=== PATIENT | male | born 1965 | race Caucasian/White ===

== ENCOUNTER 2018-11-22 19:57 | Emergency (ER) | payer BC, SELFPAY ==
[2018-11-22 20:06] VITALS: BP 130/103; PULSE 108; RESP 22; TEMP 36.9; O2SAT 93
--- NOTE | 2018-11-22 20:13 | DI.RAD_ITS ---
SYMPTOM/DIAGNOSIS: RT RIB PAIN, FELT POP, ? FX OR PNEUMONIA, COUGH PA AND LATERAL CHEST: No priors. The heart is normal in size. The lungs are clear. The mediastinal structures and pleura appear intact. CONCLUSION: Normal chest.
[2018-11-22] MEDS: Albuterol/Ipratropium 3 ML UPD VIAL UPD (20:19)
--- NOTE | 2018-11-22 21:06 | DI.VRAD_ITS ---
EXAM: XR Chest, 2 Views EXAM DATE/TIME: 11/22/2018 8:37 PM CLINICAL HISTORY: 53 years old, male; Pain; Other: Chest and RT rib pain TECHNIQUE: XR of the chest, 2 views. COMPARISON: No relevant prior studies available. FINDINGS: No airspace consolidation, pleural effusion or pneumothorax. The cardiomediastinal silhouette is unremarkable. IMPRESSION: No acute findings. Dictated and Authenticated by: Arash Nicole MD. Ordering:YOANA Acevedo MD
[2018-11-22 21:16] VITALS: BP 127/71; PULSE 98; RESP 18; TEMP 36.9; O2SAT 94
[2018-11-22] MEDS: Lidocaine 5% Patch 1 PATCH TP (21:49)
--- NOTE | 2018-11-23 01:35 | ED.GENADUL_ITS ---
Discharge Plan Disposition Patient Disposition: HOME Condition: Good Discharge Details Chief Complaint: RespSymp Clinical Impression: Influenza [facility] Provider: Curtis Mark Home Meds and New Rx's Prescriptions: No Action lisinopril 20 mg Tablet 20 mg PO DAILY RF: 0 amlodipine 5 mg Tablet 5 mg PO DAILY RF: 0 Discharge Instructions Instructions: Influenza (ED) Additional Instructions: Please drink plenty of fluids throughout the day. Please take Tylenol and Motrin as needed for pain. If you notice any worsening of your symptoms, or any new symptoms such as vomiting, diarrhea, fever, chills, shortness of breath, chest pain, numbness, weakness, or fainting , please return immediately to the emergency department for reevaluation. Please follow up with your primary care provider as soon as possible for reassessment and reevaluation. As always, it was a pleasure participating in your medical care today. Discharge Data Discharge Date/Time-TO BE ENTERED AT DEPARTURE: 11/22/18 21:55 Medical Decision Making This is a very pleasant 53-year-old gentleman who presents for 5 days of chills,, ache, cough, and feeling very rundown. Signs and symptoms are concerning for influenza. He does have risk factors being here in the hospital with a friend for quite some time. Physical exam shows no red flags of meningitis, he has no cardiac history, and did have a cardiac catheterization 2 years ago which showed no evidence of occlusion or plaques and needed no intervention. The patient's influenza test was positive for influenza A. Chest x-ray is negative for any evidence of pneumonia, hospital-acquired pneumonia, or rib fracture or pneumothorax. The patient's vital signs are reassuring and stable. Since his symptoms have been going on for 5 days he is not a candidate for Tamiflu. With reassuring vital signs, no evidence of pneumonia, pneumothorax, meningitis, or other significant abnormality we recommend continued home use of Tylenol, Motrin, fluids, cough drops and honey for control of his cough. We did apply a Lidoderm patch to the right side of his chest and the patient had notable improvement of his symptoms with this. We discussed red flags which to return. I have extensively reviewed the treatment plan and discharge instructions with the patient. I have addressed all patient concerns at this time. The patient was made aware of what symptoms to monitor for that would warrant a return to the emergency department. Discussed the plan with the patient, they demonstrate verbal understanding and agreement with our assessment and plan at this time. HPI General Date/Time Provider Initiated Documentation: 11/22/18 20:03 . HPI Narrative: This is a very pleasant 53-year-old male with a past medical history of hypertension who presents today for 5 days of cough, runny nose, congestion, feelings of malaise and achiness, and feeling like he got run over by a truck. He did get his flu shot today. He had a family member who was recently admitted in the hospital and he had been staying with the patient here in the hospital to be with the patient. Patient also admits that yesterday during his coughing episodes he had a sudden pain and popping-like sensation on his right lower chest wall. Since then he has had some pain with coughing. He denies any other complaints at this time. He denies any productivity with his cough, fever, vomiting, diarrhea, neck pain or neck stiffness. No other modifying factors or other complaints at this time. He denies any current tobacco use. Related Data Home Medications Medication Instructions Recorded Confirmed amlodipine 5 mg PO DAILY 11/22/18 11/22/18 lisinopril 20 mg PO DAILY 11/22/18 11/22/18 Allergies Allergy/AdvReac Type Severity Reaction Status Date / Time No Known Allergies Allergy Unverified 11/22/18 20:12 General Stated Complaint: RespSymp UMM: 3 Review of Systems Review of Systems All systems reviewed & are unremarkable except as noted in HPI and below [facility] Social History Smoking/Tobacco Use Status: Never Exam Narrative Exam Narrative: 1.Const: Well-nourished, Well-developed, appearing stated age 2.Eyes: PERRL, no conjunctival injection, and symmetrical lids. 3.ENT: Atraumatic external nose and ears. Moist MM. Neck: Symmetric, trachea midline, No thyromegaly. Patient demonstrates good movement of cervical neck. There is no nuchal rigidity, no nuchal tenderness. Patient is able to flex the neck without any difficulty or significant pain. Negative Kernig's and Brudzinski sign. 4.CVS: +S1/S2, No murmurs or gallops. Peripheral pulses 2+ and equal in all extremities. Brisk capillary refill in all extremities. 5.RESP: Unlabored respiratory effort. Clear to auscultation bilaterally. No wheezes rales or rhonchi. Notable reproducible chest wall over the right anterior lower chest wall over ribs 9 and 10. 6.GI: Soft, Nontender/Nondistended, No hepatosplenomegaly. No guarding or rebound. 7.MSK: Normocephalic/Atraumatic, Extremities w/o deformity or ttp No cyanosis or clubbing, Normal movement of all extremities 8.Skin: Warm, Dry. No rashes or lesions. 9.Neuro: life skills trainer II-XII grossly intact. Sensation grossly intact, no focal neurologic deficits. 10.Psych: (AAO) x3. Appropriate mood and affect Course Vital Signs Temperature 36.9 C 11/22/18 20:06 Pulse 108 H 11/22/18 20:06 Respiratory Rate 22 11/22/18 20:06 Blood Pressure 130/103 H 11/22/18 20:06 Pulse Oximetry 93 L 11/22/18 20:06 Temperature 36.9 C 11/22/18 21:16 Temperature Source Skin 11/22/18 21:16 Pulse 98 H 11/22/18 21:16 Respiratory Rate 18 11/22/18 21:16 Respiratory Effort 11/22/18 20:50 Respiratory Depth Normal 11/22/18 20:50 Blood Pressure 127/71 11/22/18 21:16 Blood Pressure Position Sitting 11/22/18 20:06 Pulse Oximetry 94 L 11/22/18 21:16 Oxygen Delivery Method Room Air 11/22/18 21:16 Oxygen Flow Rate 0 11/22/18 21:16 Pain Level 7 11/22/18 20:06 Comment 11/22/18 20:06 Lab/Test Results Lab/Test Results: 11/22/18 20:15 Nasopharynx Influenza Types A,B Antigen - Final
== END 2018-11-22 21:55 | disposition home or self-care (01) ==
PROVIDERS: Emergency Provider Student in an Organized Health Care Education/Training Program
DX: J11.1 Influenza due to unidentified influenza virus with other respiratory manifestations (principal); R07.81 Pleurodynia; I10 Essential (primary) hypertension
CPT/HCPCS: 87449; 94640; 99283; 71046; J7620